=== PATIENT | female | born 1945 | race Caucasian/White ===

== ENCOUNTER 2020-04-02 07:34 | Observation (INO) ==
[2020-04-02] MEDS ORDERED: CeFAZolin Syr 2,000MG/20 ML 2,000 MG/20 ML SYRINGE IVPB ONE (08:29)
[2020-04-02] MEDS ORDERED: Ringers Solution, Lactated 1,000 ML IVC SCH (08:30)
[2020-04-02] MEDS ORDERED: Acetaminophen IV 1,000 MG/100 ML BAG IVPB ONE (08:39)
[2020-04-02] MEDS ORDERED: Ondansetron 4 MG/2 ML VIAL IVP PRN ×2 (08:40→13:08)
[2020-04-02] MEDS ORDERED: *HR* Succinylcholine 200 MG/10 ML VIAL IVP ONE (09:19)
[2020-04-02] MEDS ORDERED: Lidocaine HCL 4 ML Topical Solution (Laryng-O-Jet Kit Sterile Pak) TP ONE (09:19)
[2020-04-02] MEDS ORDERED: Lidocaine -MPF 2% 2 ML VIAL ONE (09:19)
[2020-04-02] MEDS ORDERED: *HR* FentaNYL (PF) 100 MCG/2 ML VIAL ONE ×3 (09:19→11:48)
[2020-04-02] MEDS ORDERED: *HR* Propofol 200 MG/20 ML VIAL IVP ONE (09:19)
[2020-04-02] MEDS ORDERED: Bacitracin 50,000 UNIT, Polymyxin B Sulfate 500,000 UNIT, Sodium Chloride IRRigation 1,... IR ONE (10:00)
[2020-04-02] MEDS ORDERED: Ondansetron 4 MG/2 ML VIAL ONE (10:18)
[2020-04-02] MEDS ORDERED: Dexamethasone 4 MG/ML VIAL ONE (10:18)
[2020-04-02] MEDS ORDERED: *HR* PHENYLEPHRINE 1,000 MCG/10 ML SYRINGE IVP ONE (10:20)
[2020-04-02] MEDS ORDERED: EPHEDrine 50 MG/ML VIAL ONE (10:32)
[2020-04-02] MEDS: *HR* HYDROmorphone PF 0.5 MG/0.5 ML SYRINGE IVP PRN ×2 (12:10→12:19)
[2020-04-02] MEDS ORDERED: Naloxone 0.4 MG/ML INJ IVP PRN (13:08)
[2020-04-02] MEDS ORDERED: *HR* HYDROcodone/Acet 5/325 mg TABLET PO PRN (13:08)
[2020-04-02] MEDS ORDERED: Acetaminophen 325 MG TABLET PO PRN (13:08)
[2020-04-02] MEDS: Ringers Solution, Lactated 1,000 ML IVC SCH ×2 (13:57→19:36)
[2020-04-02] MEDS: *HR* OxyCODONE Immed Rel 5 MG TABLET PO PRN ×2 (14:04→19:35)
[2020-04-02] MEDS: CeFAZolin 2 GM/120 ML BAG IVPB SCH ×2 (17:05→23:50)
[2020-04-02] MEDS: Ipratropium/Albuterol Neb 3 ML IH SCH ×2 (18:17→21:47)
[2020-04-03] MEDS: *HR* OxyCODONE Immed Rel 5 MG TABLET PO PRN ×5 (02:02→21:18)
[2020-04-03] MEDS: Ipratropium/Albuterol Neb 3 ML IH SCH ×4 (04:10→22:08)
[2020-04-03] MEDS: tiZANidine 4 MG TABLET PO PRN ×2 (11:11→20:00)
[2020-04-04] MEDS: *HR* OxyCODONE Immed Rel 5 MG TABLET PO PRN ×3 (01:12→14:10)
[2020-04-04] MEDS: Ipratropium/Albuterol Neb 3 ML IH SCH ×2 (03:29→11:13)
[2020-04-04] MEDS: tiZANidine 4 MG TABLET PO PRN ×2 (03:47→10:26)
[2020-04-04 06:47] VITALS: BP 109/62
== END 2020-04-04 14:40 | disposition home health service (06) ==
LOC: SAMDAY 07:34 → 3NENU 07:34
PROVIDERS: ADMIT Orthopaedic Surgery Orthopaedic Surgery of the Spine; ATTEND Orthopaedic Surgery Orthopaedic Surgery of the Spine